=== PATIENT | female | born 1965 | race Two or more races ===

== ENCOUNTER 2016-10-08 17:33 | Emergency (ER) | payer MEDICAID ==
[~2016-10-08] VITALS: Ht 167.6 cm; Wt 79.8 kg
[~2016-10-08 17:33] MED LIST: BENAZEPRIL HCL20 MG ORAL; HUMULIN 70100 UNIT/2 SUBQ; HYDROCHLOROTHIA25 MG ORAL; IBUPROFEN600 MG ORAL; METFORMIN HCL500 M1 ORAL; NORCO 5-325 TA1 EACH ORAL
[2016-10-08] MEDS ORDERED: Morphine Sulfate 4mg/ml Inj IVP ONE (18:15)
[2016-10-08 19:17] LABS: BASOPHILS % (AUTO) 0.7 % (0.0-2.0); EOSINOPHILS % (AUTO) 1.8 % (0.0-3.0); LYMPHOCYTES % (AUTO) 37.1 % (20.0-45.0); MEAN CORPUSCULAR HEMOGLOBIN 31.5 PG (27.0-31.0); MEAN CORPUSCULAR HGB CONC 34.6 G/DL (32.0-36.0); MEAN CORPUSCULAR VOLUME 91 FL (80-99); MEAN PLATELET VOLUME 10.1 FL (6.5-10.1); MONOCYTES % (AUTO) 5.4 % (1.0-10.0); PLATELET COUNT 347 K/UL (150-450); RED BLOOD COUNT 4.28 M/UL (4.20-5.40); RED CELL DISTRIBUTION WIDTH 12.5 % (11.6-14.8); WHITE BLOOD COUNT 8.4 K/UL (4.8-10.8)
[2016-10-08 19:19] LABS: APPEARANCE,URINE SLIGHTLY CLOUDY; KETONES,URINE NEGATIVE (NEGATIVE); LEUKOCYTE ESTERASE ,URINE 1+ (NEGATIVE); NITRITE,URINE NEGATIVE (NEGATIVE); PH,URINE 7 (4.5-8.0); PROTEIN,URINE NEGATIVE (NEGATIVE); UROBILINOGEN,URINE NORMAL MG/DL (0.0-1.0)
[2016-10-08 19:34] LABS: ALANINE AMINOTRANSFERASE 17 U/L (3-33); ALBUMIN/GLOBULIN RATIO 1.4 (1.0-2.7); ANION GAP 14 (5-15); ASPARTATE AMINO TRANSFERASE 16 U/L (5-40); CALCIUM 9.8 mg/dL (8.6-10.2); CARBON DIOXIDE 27 mEQ/L (20-30); CHLORIDE 99 mEQ/L (98-107); CREATININE 1.2 mg/dL (0.5-0.9); GLOMERULAR FILTRATION RATE 47.3 mL/min (>60); HEMOLYSIS 1; LIPASE 48 U/L (< 60); POTASSIUM 3.3 mEQ/L (3.4-4.9); SODIUM 140 mEQ/L (135-145); TOTAL PROTEIN 7.1 g/dL (6.6-8.7)
[2016-10-08 19:36] LABS: RBC,URINE 0-2 /HPF (0 - 2); SQUAMOUS EPITHELIAL CELL,UR FEW /LPF (NONE/OCC); WBC,URINE 40-60 /HPF (0 - 2)
[2016-10-08 19:45] VITALS: BP 141/84
[2016-10-08] MEDS ORDERED: KEFLEX500 MG ORAL (21:28)
[2016-10-08] MEDS ORDERED: ACETAMINOPHEN-1 EAC1 ORAL (21:28)
[2016-10-08 21:48] VITALS: BP 140/76
--- NOTE | 2016-10-09 14:49 | Emergency Room Report ---
History of Present Illness General Chief Complaint: Abdominal Pain Source: Patient Present Illness HPI 50-year-old female presents to the complaining of abdominal pain. Patient notes pain for last 2 days. Patient states pain is "all over", 8/10, sharp,. Nonradiating. Denies fevers or chills. Notes increased urination. Denies flank pain. Denies nausea or vomiting. Denies diarrhea. No other aggravating or leading factors. Denies any other associated symptom Allergies: Coded Allergies: No Known Allergies (Unverified , 03/21/14) Patient History Past Medical History: DM, HTN Past Surgical History: none Pertinent Family History: none Social History: Denies: alcohol use, drug use, smoking Now: No Immunizations: UTD Reviewed Nursing Documentation: PMH: Agreed, PSxH: Agreed Nursing Documentation-PMH Hx Hypertension: Yes Hx Diabetes: Yes Hx Dialysis: No Hx Neurological Problems: No - CHOLECYSTECTOMY Review of Systems All Other Systems: negative except mentioned in HPI Physical Exam Vital Signs Date Time Temp Pulse Resp B/P Pulse Ox O2 Delivery O2 Flow Rate FiO2 10/08/16 17:52 97.9 95 18 112/77 99 Room Air Sp02 EP Interpretation: reviewed, normal General Appearance: no apparent distress, alert, GCS 15, non-toxic, obese Head: normocephalic Eyes: bilateral eye PERRL, bilateral eye normal inspection ENT: normal ENT inspection Neck: normal inspection Respiratory: chest non-tender, lungs clear, normal breath sounds, speaking full sentences Cardiovascular #1: regular rate, rhythm, no edema Gastrointestinal: tenderness Rectal: deferred Genitourinary: no CVA tenderness Musculoskeletal: normal inspection Neurologic: alert, oriented x3, responsive, motor strength/tone normal, sensory intact, speech normal Psychiatric: normal inspection Skin: normal inspection Lymphatic: normal inspection Medical Decision Making Diagnostic Impression: Primary Impression: UTI (urinary tract infection) Qualified Codes: N39.0 - Urinary tract infection, site not specified Additional Impression: Gastroenteritis ER Course Hospital Course 50-year-old F presents to ED with abdominal pain Differential diagnosis includes-appendicitis, cholecystitis, small bowel obstruction, gastritis, Clinical course Patient placed on stretcher. After initial history and physical I ordered labs , IV fluids, pain medications and CT scan Labs - no leukocytosis, electrolytes ok, LFTs normal, UA + bacteria CT scan shows enteritis, ? cystitis Upon reassessment, patient states pain has improved. I feel this is a highly complex case requiring extensive working including EKG/ Rhythm strip, Xray/CT/US, Blood/urine lab work, repeat exams while in ED, and administration of strong opiates/narcotics for pain control, admission to hospital or close patient follow up. Diagnosis - UTI, gastroenteritis Stable and discharged to home with Rx Keflex, Tylenol #3. Followup with PMD. Return to ED if symptoms recur or worsen Labs Test 10/08/16 19:00 White Blood Count 8.4 K/UL (4.8-10.8) Red Blood Count 4.28 M/UL (4.20-5.40) Hemoglobin 13.5 G/DL (12.0-16.0) Hematocrit 39.0 % (37.0-47.0) Mean Corpuscular Volume 91 FL (80-99) Mean Corpuscular Hemoglobin 31.5 PG (27.0-31.0) Mean Corpuscular Hemoglobin Concent 34.6 G/DL (32.0-36.0) Red Cell Distribution Width 12.5 % (11.6-14.8) Platelet Count 347 K/UL (150-450) Mean Platelet Volume 10.1 FL (6.5-10.1) Neutrophils (%) (Auto) 55.0 % (45.0-75.0) Lymphocytes (%) (Auto) 37.1 % (20.0-45.0) Monocytes (%) (Auto) 5.4 % (1.0-10.0) Eosinophils (%) (Auto) 1.8 % (0.0-3.0) Basophils (%) (Auto) 0.7 % (0.0-2.0) Urine Color Pale yellow Urine Appearance Slightly cloudy Urine pH 7 (4.5-8.0) Urine Specific [place] 1.005 (1.005-1.035) Urine Protein Negative (NEGATIVE) Urine Glucose (UA) 4+ (NEGATIVE) Urine Ketones Negative (NEGATIVE) Urine Occult Blood 2+ (NEGATIVE) Urine Nitrite Negative (NEGATIVE) Urine Bilirubin Negative (NEGATIVE) Urine Urobilinogen Normal MG/DL (0.0-1.0) Urine Leukocyte Esterase 1+ (NEGATIVE) Urine RBC 0-2 /HPF (0 - 2) Urine WBC 40-60 /HPF (0 - 2) Urine Squamous Epithelial Cells Few /LPF (NONE/OCC) Urine Bacteria None /HPF (NONE) Sodium Level 140 mEQ/L (135-145) Potassium Level 3.3 mEQ/L (3.4-4.9) Chloride Level 99 mEQ/L (98-107) Carbon Dioxide Level 27 mEQ/L (20-30) Anion Gap 14 (5-15) Blood Urea Nitrogen 15 mg/dL (7-23) Creatinine 1.2 mg/dL (0.5-0.9) Estimat Glomerular Filtration Rate 47.3 mL/min (>60) Glucose Level 278 mg/dL (74-106) Calcium Level 9.8 mg/dL (8.6-10.2) Total Bilirubin < 0.2 mg/dL (0.0-1.2) Aspartate Amino Transf (AST/SGOT) 16 U/L (5-40) Alanine Aminotransferase (ALT/SGPT) 17 U/L (3-33) Alkaline Phosphatase 118 U/L (35-104) Total Protein 7.1 g/dL (6.6-8.7) Albumin 4.2 g/dL (3.5-5.2) Globulin 2.9 g/dL Albumin/Globulin Ratio 1.4 (1.0-2.7) Lipase 48 U/L (< 60) CT/MRI/US Diagnostic Results CT/MRI/US Diagnostic Results : Imaging Test Ordered: CT A/P Impression enteritis. thickened bladder ? cystitis Last Vital Signs Date Time Temp Pulse Resp B/P Pulse Ox O2 Delivery O2 Flow Rate FiO2 10/08/16 21:48 88 16 140/76 98 Room Air 10/08/16 19:45 98.8 Status: improved Disposition: HOME, SELF-CARE Condition: Stable Scripts Cephalexin* (KEFLEX*) 500 Mg Capsule 500 MG ORAL Q6H, #28 CAP 0 Refills Prov: SUNDAY SAM M.D. 10/08/16 Acetaminophen With Codeine (T#3) (TYLENOL #3 TAB*) Y Tab 1 TAB ORAL Q8H Y for For Pain, #20 TAB Prov: SUNDAY SAM M.D. 10/08/16 Patient Instructions: Dysuria SUNDAY SAM M.D. Oct 09, 2016 14:49
--- NOTE | 2016-10-11 09:02 | Diagnostic Imaging Report ---
Indication: ABD PAIN Technique: CT scan of the abdomen and pelvis was performed from the diaphragms to the symphysis pubis with intravenous contrast material only per specific request of the ordering physician.. 5 mm sections were generated. Axial, coronal, and sagittal images are presented. Dose: Total Dose Length Product - DLP [address] Dose Index - CTDIvol(s) 19.07 mGy. Comparison: None Findings: The gallbladder is surgically absent. The liver is unremarkable. The spleen is normal. There is a gastric diverticulum from the fundus of the stomach. This measures approximately 3.4 cm. Adrenal glands are normal. The pancreas is unremarkable. Aorta and inferior vena cava are normal caliber. Retroperitoneum is free of adenopathy. The right kidney demonstrates a small cyst projecting from the upper pole. Left kidney is unremarkable. The appendix is normal. There is a slightly dilated loop of proximal jejunum with an air-fluid level. This does not appear obstructive. The bladder is collapsed. Uterus is normal. Left ovary is prominent. Impression: Slightly dilated loop of proximal jejunum, nonspecific, with air-fluid level. Small right renal cyst. Previous cholecystectomy. Gastric diverticulum. Otherwise negative. The above report is concordant with preliminary reading by [facility] with minor difference. The CT scanner at [facility] is accredited by the [employer] and the scans are performed using protocols designed to limit radiation exposure to as low as reasonably achievable to attain images of sufficient resolution adequate for diagnostic evaluation.
== END 2016-10-08 21:50 | disposition home or self-care (01) ==
LOC: EMR 19:20
DX: N39.0 Urinary tract infection, site not specified (principal); K52.9 Noninfective gastroenteritis and colitis, unspecified; E11.9 Type 2 diabetes mellitus without complications; I10 Essential (primary) hypertension; Z90.49 Acquired absence of other specified parts of digestive tract; E66.9 Obesity, unspecified; N28.1 Cyst of kidney, acquired
CPT/HCPCS: 36415; 74177; 80053; 81003; 82962; 83690; 85025; 87086; 87181; 96374; 96375; 99284; J2270; J2405; Q9967

== ENCOUNTER 2016-10-18 13:13 | Emergency (ER) | payer MEDICAID ==
[~2016-10-18] VITALS: Ht 170.2 cm; Wt 79.4 kg
[2016-10-18 13:13] VITALS: BP 106/71
[~2016-10-18 13:13] MED LIST changes: +ACETAMINOPHEN-1 EAC1 ORAL; +KEFLEX500 MG ORAL
[2016-10-18 14:18] LABS: APPEARANCE,URINE SLIGHTLY CLOUDY; BASOPHILS % (AUTO) 1.2 % (0.0-2.0); EOSINOPHILS % (AUTO) 1.9 % (0.0-3.0); KETONES,URINE 1+ (NEGATIVE); LEUKOCYTE ESTERASE ,URINE 1+ (NEGATIVE); LYMPHOCYTES % (AUTO) 30.5 % (20.0-45.0); MEAN CORPUSCULAR HGB CONC 32.4 G/DL (32.0-36.0); MEAN CORPUSCULAR VOLUME 93 FL (80-99); MEAN PLATELET VOLUME 9.6 FL (6.5-10.1); MONOCYTES % (AUTO) 8.8 % (1.0-10.0); NEUTROPHILS % (AUTO) 57.6 % (45.0-75.0); NITRITE,URINE NEGATIVE (NEGATIVE); PH,URINE 6.5 (4.5-8.0); PLATELET COUNT 373 K/UL (150-450); PROTEIN,URINE NEGATIVE (NEGATIVE); RED BLOOD COUNT 4.56 M/UL (4.20-5.40); RED CELL DISTRIBUTION WIDTH 12.5 % (11.6-14.8); UROBILINOGEN,URINE NORMAL MG/DL (0.0-1.0); WHITE BLOOD COUNT 10.7 K/UL (4.8-10.8)
[2016-10-18 14:27] LABS: BACTERIA,URINE OCCASIONAL /HPF; SQUAMOUS EPITHELIAL CELL,UR FEW /LPF (NONE/OCC); WBC,URINE 0-2 /HPF (0 - 2)
[2016-10-18] MEDS ORDERED: Morphine Sulfate 4mg/ml Inj IVP ONE (14:30)
[2016-10-18 14:31] LABS: ALBUMIN/GLOBULIN RATIO 1.6 (1.0-2.7); CALCIUM 9.6 mg/dL (8.6-10.2); CREATININE 1.3 mg/dL (0.5-0.9); GLOMERULAR FILTRATION RATE 43.2 mL/min (>60); POTASSIUM 3.3 mEQ/L (3.4-4.9); TOTAL PROTEIN 7.2 g/dL (6.6-8.7)
[2016-10-18] MEDS ORDERED: HUMULIN 70100 UNIT/3 SQ ×2 (14:50)
[2016-10-18] MEDS ORDERED: GLIPIZIDE5 MG ORAL (14:54)
[2016-10-18] MEDS ORDERED: sleeping pill (14:54)
[2016-10-18] MEDS ORDERED: cholesterol pill (14:54)
[2016-10-18] MEDS ORDERED: ASPIR 8181 MG ORAL (14:54)
[2016-10-18] MEDS ORDERED: [UNRECOGNIZED DRUG - REMARK] (14:54)
[2016-10-18] MEDS ORDERED: ZOFRAN4 M3 ORAL (15:28)
[2016-10-18] MEDS ORDERED: ACETAMINOPHEN-1 EAC1 ORAL (15:28)
[2016-10-18 15:41] VITALS: BP 106/71
--- NOTE | 2016-10-18 17:21 | Emergency Room Report ---
History of Present Illness General Chief Complaint: Abdominal Pain Source: Patient Present Illness HPI The patient is a 50-year-old female presenting for abdominal pain. She was seen in this emergency Department 10 days prior for UTI which she had lab work done as well as CT scan which only found UTI. She is given antibiotics and states that her dysuria decreased. Abdominal pain initially decreased but has now returned. Pain is a 10 out of 10 dull ache "all over" the abdomen. She also admits to diarrhea which began last night she denies nausea or vomiting. She denies other symptoms including fever, chills, rash Allergies: Coded Allergies: No Known Allergies (Unverified , 03/21/14) Patient History Past Medical History: see triage record Pertinent Family History: none Reviewed Nursing Documentation: PMH: Agreed, PSxH: Agreed Nursing Documentation-PMH Hx Hypertension: Yes Hx Diabetes: Yes Hx Dialysis: No Hx Neurological Problems: No - CHOLECYSTECTOMY Review of Systems All Other Systems: negative except mentioned in HPI Physical Exam Vital Signs Date Time Temp Pulse Resp B/P Pulse Ox O2 Delivery O2 Flow Rate FiO2 10/18/16 13:12 97.0 96 16 106/71 99 Room Air Sp02 EP Interpretation: reviewed, normal General Appearance: no apparent distress, alert, GCS 15, non-toxic Head: normocephalic, atraumatic Eyes: bilateral eye PERRL, bilateral eye normal inspection ENT: hearing grossly normal, normal pharynx, no angioedema, normal voice Gastrointestinal: tenderness - epigastric Musculoskeletal: back normal, gait/station normal, normal range of motion, non- tender Neurologic: alert, oriented x3, responsive, motor strength/tone normal, sensory intact, speech normal Psychiatric: judgement/insight normal, memory normal, mood/affect normal, no suicidal/homicidal ideation Skin: normal color, no rash, warm/dry, well hydrated Medical Decision Making PA Attestation Dr. Hargrove is my supervising physician. Patient management was discussed with my supervising physician Diagnostic Impression: Primary Impression: Gastroenteritis Additional Impression: Hyperglycemia ER Course The patient is a 50-year-old female presenting for abdominal pain and diarrhea Differential diagnoses considered include but not limited to gastritis, pancreatitis, appendicitis, UTI, C dif, diverticulitis, among others PE: Afebrile. NAD Abdomen is soft. Normal bowel sounds. Nondistended. There is tenderness to palpation over epigastric region. No lower abdominal tenderness. Skin is warm and dry Blood work and urinalysis unremarkable except for significant hyperglycemia. Recent CT of abd done and was unremarkable. The patient is given insulin subcutaneous with a significant decrease in glucose. IV fluids and morphine have decreased pain. She is given prescription for pain medication and zofran. She was informed this is likely gastroenteritis due to vital infection. She will follow up with her primary doctor soon as possible. ER precautions given Laboratory Tests Test 10/18/16 13:57 White Blood Count 10.7 K/UL (4.8-10.8) Red Blood Count 4.56 M/UL (4.20-5.40) Hemoglobin 13.7 G/DL (12.0-16.0) Hematocrit 42.3 % (37.0-47.0) Mean Corpuscular Volume 93 FL (80-99) Mean Corpuscular Hemoglobin 30.0 PG (27.0-31.0) Mean Corpuscular Hemoglobin Concent 32.4 G/DL (32.0-36.0) Red Cell Distribution Width 12.5 % (11.6-14.8) Platelet Count 373 K/UL (150-450) Mean Platelet Volume 9.6 FL (6.5-10.1) Neutrophils (%) (Auto) 57.6 % (45.0-75.0) Lymphocytes (%) (Auto) 30.5 % (20.0-45.0) Monocytes (%) (Auto) 8.8 % (1.0-10.0) Eosinophils (%) (Auto) 1.9 % (0.0-3.0) Basophils (%) (Auto) 1.2 % (0.0-2.0) Urine Color Pale yellow Urine Appearance Slightly cloudy Urine pH 6.5 (4.5-8.0) Urine Specific [place] 1.010 (1.005-1.035) Urine Protein Negative (NEGATIVE) Urine Glucose (UA) 4+ (NEGATIVE) H Urine Ketones 1+ (NEGATIVE) H Urine Occult Blood 2+ (NEGATIVE) H Urine Nitrite Negative (NEGATIVE) Urine Bilirubin Negative (NEGATIVE) Urine Urobilinogen Normal MG/DL (0.0-1.0) Urine Leukocyte Esterase 1+ (NEGATIVE) H Urine RBC 2-4 /HPF (0 - 2) H Urine WBC 0-2 /HPF (0 - 2) Urine Squamous Epithelial Cells Few /LPF (NONE/OCC) Urine Bacteria Occasional /HPF (NONE) Sodium Level 137 mEQ/L (135-145) Potassium Level 3.3 mEQ/L (3.4-4.9) L Chloride Level 96 mEQ/L (98-107) L Carbon Dioxide Level 24 mEQ/L (20-30) Anion Gap 17 (5-15) H Blood Urea Nitrogen 20 mg/dL (7-23) Creatinine 1.3 mg/dL (0.5-0.9) H Estimate Glomerular Filtration Rate 43.2 mL/min (>60) Glucose Level 467 mg/dL (74-106) H Calcium Level 9.6 mg/dL (8.6-10.2) Total Bilirubin 0.2 mg/dL (0.0-1.2) Aspartate Amino Transferase (AST) 17 U/L (5-40) Alanine Aminotransferase (ALT) 21 U/L (3-33) Alkaline Phosphatase 117 U/L (35-104) H Total Protein 7.2 g/dL (6.6-8.7) Albumin 4.5 g/dL (3.5-5.2) Globulin 2.7 g/dL Albumin/Globulin Ratio 1.6 (1.0-2.7) Lipase 56 U/L (< 60) Lab Results Impression No leukocytosis. They're significant hyperglycemia Urinalysis shows improvement from previous. not consistent with infection Last Vital Signs Date Time Temp Pulse Resp B/P Pulse Ox O2 Delivery O2 Flow Rate FiO2 10/18/16 15:41 97.0 96 16 106/71 99 Room Air Status: improved Disposition: HOME, SELF-CARE Condition: Improved Scripts Acetaminophen With Codeine (T#3) (TYLENOL #3 TAB*) Y Tab 1 TAB ORAL Q6HR Y for For Pain, #10 TAB Prov: TERZIAN,RENAE P.A. 10/18/16 Ondansetron* (ZOFRAN*) 4 Mg Tablet 4 MG ORAL Q6H Y for Nausea & Vomiting, #30 TAB Prov: TERZIAN,RENAE P.A. 10/18/16 Patient Instructions: Abdominal Pain, Adult, Adenovirus Additional Instructions: I discussed my findings with the patient. All questions and concerns have been answered. Treatment and medication compliance have been addressed. I advised the patient that they need to follow up with PMD in 3-5 days. Return to ED if symptoms worsen, new symptoms arise such as fever, blood in stools, or if needed for any reason. Patient verbalized understanding of discharge instructions. RENAE CARRILLO Oct 18, 2016 17:21
== END 2016-10-18 15:41 | disposition home or self-care (01) ==
LOC: EDBD 13:13 → EMR 13:40
DX: K52.9 Noninfective gastroenteritis and colitis, unspecified (principal); E11.65 Type 2 diabetes mellitus with hyperglycemia; I10 Essential (primary) hypertension; Z90.49 Acquired absence of other specified parts of digestive tract
CPT/HCPCS: 36415; 80053; 81003; 82962; 83690; 85025; 96360; 96372; 96374; 99284; J1815; J2270; J2405

== ENCOUNTER 2018-04-04 10:35 | Inpatient (IN) | payer MEDICAID ==
[~2018-04-04] VITALS: Ht 152.4 cm; Wt 77.1 kg
[~2018-04-04 10:35] MED LIST changes: +ASPIR 8181 MG ORAL; +GLIPIZIDE5 MG ORAL; +HUMULIN 70100 UNIT/3 SQ; +ZOFRAN4 M3 ORAL; +[UNRECOGNIZED DRUG - REMARK]; +cholesterol pill; +sleeping pill
[2018-04-04 10:51] VITALS: BP 110/71
--- NOTE | 2018-04-04 11:53 | Diagnostic Imaging Report ---
Indication: Headache Technique: Contiguous 5 mm thick transaxial imaging of the head obtained in a Siemens Sensation [address] scanner. Soft tissue and bone windows generated. Automatic Exposure Control was utilized. Total Dose length Product (DLP): 1305.[address] Dose Index Volume (CTDIvol): 70.38 mGy Comparison: none Findings: Late subacute to chronic lacunar infarct measuring 1 cm in the left basal ganglia regions demonstrated the. This is seen as a well-circumscribed a 1 cm ovoid hypodensity. Correlate clinically. Basal cisterns and ventricles appear normal. There is no evidence of edema or mass effect. There is no acute hemorrhage identified within the brain. Osseous structures appear normal. IMPRESSION: No acute CVA, mass effect or edema identified on this examination. Late subacute to chronic lacunar infarct involving left basal ganglia region. The CT scanner at [facility] is accredited by the [employer] and the scans are performed using dose optimization techniques as appropriate to a performed exam including Automatic Exposure control.
[2018-04-04 11:58] LABS: BASOPHILS % (AUTO) 1.1 % (0.0-2.0); EOSINOPHILS % (AUTO) 0.9 % (0.0-3.0); HEMATOCRIT 41.6 % (37.0-47.0); HEMOGLOBIN 13.7 G/DL (12.0-16.0); LYMPHOCYTES % (AUTO) 40.5 % (20.0-45.0); MEAN CORPUSCULAR VOLUME 91 FL (80-99); MONOCYTES % (AUTO) 8.5 % (1.0-10.0); NEUTROPHILS % (AUTO) 49.1 % (45.0-75.0); PLATELET COUNT 500 K/UL (150-450); RED BLOOD COUNT 4.58 M/UL (4.20-5.40); RED CELL DISTRIBUTION WIDTH 13.2 % (11.6-14.8); WHITE BLOOD COUNT 10.1 K/UL (4.8-10.8)
[2018-04-04 12:13] LABS: ANION GAP 11 mmol/L (5-15); BLOOD UREA NITROGEN 22 mg/dL (7-18); CALCIUM 8.9 MG/DL (8.5-10.1); CARBON DIOXIDE 26 MMOL/L (21-32); CHLORIDE 101 MMOL/L (98-107); CREATININE 1.2 MG/DL (0.55-1.30); POTASSIUM 2.9 MMOL/L (3.5-5.1); SODIUM 138 MMOL/L (136-145)
[2018-04-04 12:20] LABS: ALANINE AMINOTRANSFERASE 33 U/L (12-78); ALBUMIN 3.7 G/DL (3.4-5.0); ALKALINE PHOSPHATASE 85 U/L (46-116); ASPARTATE AMINO TRANSFERASE 23 U/L (15-37); BILIRUBIN,TOTAL 0.3 MG/DL (0.2-1.0); CHOLESTEROL 161 MG/DL (< 200); HDL CHOLESTEROL 29 MG/DL (40-60); TRIGLYCERIDES 497 MG/DL (30-150)
[2018-04-04 13:05] VITALS: BP 116/62
--- NOTE | 2018-04-04 15:33 | Emergency Room Report ---
History of Present Illness General Chief Complaint: General Complaint Source: Patient Present Illness HPI 52-year-old female presents ED for evaluation. States that this morning she felt an episode of dizziness and unsteady gait. States she felt her right arm go numb. States symptoms last for about one hour and then resolved. Patient denies any symptoms at this time. States she feels weak. States that about one month ago she had a similar episode but did not go to the hospital at that time. Denies chest pain or shortness of breath. Notes history of hypertension and diabetes. Alcohol or drug use. No other aggravating relieving factors. Denies any other associated symptoms Allergies: Coded Allergies: No Known Allergies (Unverified , 03/21/14) Patient History Past Medical History: DM, HTN Past Surgical History: none Pertinent Family History: none Social History: Denies: smoking, alcohol use, drug use Now: No Immunizations: UTD Reviewed Nursing Documentation: PMH: Agreed; PSxH: Agreed Nursing Documentation-PMH Past Medical History: No History, Except For Hx Hypertension: Yes Hx Diabetes: Yes Hx Dialysis: No Hx Neurological Problems: No - CHOLECYSTECTOMY Review of Systems All Other Systems: negative except mentioned in HPI Physical Exam Vital Signs Date Time Temp Pulse Resp B/P (MAP) Pulse Ox O2 Delivery O2 Flow Rate FiO2 04/04/18 10:41 97.9 71 18 103/73 98 Room Air Sp02 EP Interpretation: reviewed, normal General Appearance: no apparent distress, GCS 15, non-toxic, lethargic Head: normocephalic, atraumatic Eyes: bilateral eye normal inspection, bilateral eye PERRL ENT: hearing grossly normal, normal pharynx, no angioedema, normal voice Neck: full range of motion, supple/symm/no masses Respiratory: chest non-tender, lungs clear, normal breath sounds, speaking full sentences Cardiovascular #1: regular rate, rhythm, no edema Cardiovascular #2: 2+ carotid (R), 2+ carotid (L), 2+ radial (R), 2+ radial (L) , 2+ dorsalis pedis (R), 2+ dorsalis pedis (L) Gastrointestinal: normal bowel sounds, non tender, soft, non-distended, no guarding, no rebound Rectal: deferred Genitourinary: normal inspection, no CVA tenderness Musculoskeletal: back normal, gait/station normal, normal range of motion, non- tender Neurologic: alert, oriented x3, responsive, preschool program director III-XII nml as tested, motor strength/tone normal, sensory intact, cerebellar normal, speech normal Psychiatric: judgement/insight normal, memory normal, mood/affect normal, no suicidal/homicidal ideation Reflexes: 3+ bicep (R), 3+ bicep (L), 3+ tricep (R), 3+ tricep (L), 3+ knee (R) , 3+ knee (L) Skin: normal color, no rash, warm/dry, well hydrated Lymphatic: no adenopathy Medical Decision Making Diagnostic Impression: Primary Impression: Hypoglycemia Additional Impression: CVA (cerebral vascular accident) Qualified Codes: I63.9 - Cerebral infarction, unspecified ER Course Hospital Course 52-year-old F presents ED complaining of episode of unsteady gait and right arm numbness this morning Differential diagnoses include: NV/unstable angina, SVT/Vtach/AFib, CVA/TIA Clinical course Patient placed on stretcher. 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 After initial history and physical I ordered labs, EKG, chest x-ray, and CT head accucheck 43 - given D50 labs reviewed- glucose 41, no leukocytosis, Hb/Hct stable EKG - NSR, no acute ischemic changes interpreted by me CT brain - subacute infarct noted in the basal ganglia Accu-Chek improved after D50. Discussed findings with patient. The episode patient experienced last month with the dizziness was probably a lacunar infarct that she sustained. Today patient may have had a TIA. No residual neurological sequela at this time It's also possible that her symptoms were related to her hypoglycemia. Patient is on glipizide which is long-acting. Patient given aspirin here. Patient is not a candidate for TPA as she has no existing neurological symptoms and she is out of the window for the previous CVA Patient will be admitted to Dr. Roverto Mcfadden. I feel this is a highly complex case requiring extensive working including EKG/Rhythm strip, Xray/CT/US, Blood/urine lab work, repeat exams while in ED, and administration of strong opiates/narcotics for pain control, admission to hospital or close patient follow up. Diagnosis - CVA/TIA, hypoglycemia admitted to telemetry in serious condition Labs Test 04/04/18 11:35 White Blood Count 10.1 K/UL (4.8-10.8) Red Blood Count 4.58 M/UL (4.20-5.40) Hemoglobin 13.7 G/DL (12.0-16.0) Hematocrit 41.6 % (37.0-47.0) Mean Corpuscular Volume 91 FL (80-99) Mean Corpuscular Hemoglobin 29.9 PG (27.0-31.0) Mean Corpuscular Hemoglobin Concent 32.9 G/DL (32.0-36.0) Red Cell Distribution Width 13.2 % (11.6-14.8) Platelet Count 500 K/UL (150-450) Mean Platelet Volume 7.5 FL (6.5-10.1) Neutrophils (%) (Auto) 49.1 % (45.0-75.0) Lymphocytes (%) (Auto) 40.5 % (20.0-45.0) Monocytes (%) (Auto) 8.5 % (1.0-10.0) Eosinophils (%) (Auto) 0.9 % (0.0-3.0) Basophils (%) (Auto) 1.1 % (0.0-2.0) Prothrombin Time 10.1 SEC (9.30-11.50) Prothromb Time International Ratio 1.0 (0.9-1.1) Activated Partial Thromboplast Time 27 SEC (23-33) Sodium Level 138 MMOL/L (136-145) Potassium Level 2.9 MMOL/L (3.5-5.1) Chloride Level 101 MMOL/L (98-107) Carbon Dioxide Level 26 MMOL/L (21-32) Anion Gap 11 mmol/L (5-15) Blood Urea Nitrogen 22 mg/dL (7-18) Creatinine 1.2 MG/DL (0.55-1.30) Estimat Glomerular Filtration Rate 47.0 mL/min (>60) Glucose Level 41 MG/DL (74-106) Calcium Level 8.9 MG/DL (8.5-10.1) Total Bilirubin 0.3 MG/DL (0.2-1.0) Aspartate Amino Transf (AST/SGOT) 23 U/L (15-37) Alanine Aminotransferase (ALT/SGPT) 33 U/L (12-78) Alkaline Phosphatase 85 U/L (46-116) Troponin I 0.005 ng/mL (0.000-0.056) Total Protein 7.4 G/DL (6.4-8.2) Albumin 3.7 G/DL (3.4-5.0) Globulin 3.7 g/dL Albumin/Globulin Ratio 1.0 (1.0-2.7) Triglycerides Level 497 MG/DL (30-150) Cholesterol Level 161 MG/DL (< 200) LDL Cholesterol 79 mg/dL (<100) HDL Cholesterol 29 MG/DL (40-60) Cholesterol/HDL Ratio 5.6 (3.3-4.4) EKG Diagnostic Results Rate: normal Rhythm: NSR ST Segments: no acute changes ASA given to the pt in ED: No Rhythm Strip Diag. Results EP Interpretation: yes Rhythm: NSR, no PVC's, no ectopy CT/MRI/US Diagnostic Results CT/MRI/US Diagnostic Results : Imaging Test Ordered: CT Head Impression No acute CVA, mass effect or edema identified on this examination. Late subacute to chronic lacunar infarct involving left basal ganglia region. Last Vital Signs Date Time Temp Pulse Resp B/P (MAP) Pulse Ox O2 Delivery O2 Flow Rate FiO2 04/04/18 14:05 98.0 82 18 115/83 98 Room Air Status: improved Disposition: ADMITTED INPATIENT Condition: Serious Referrals: NON PHYSICIAN (PCP) Farhan Brantley MD Apr 04, 2018 15:33
[2018-04-04 16:00] VITALS: BP 130/88
[2018-04-04] MEDS ORDERED: Gadavist 7.5mMol/7.5ml vial IV PRN (16:30)
[2018-04-04] MEDS ORDERED: NovoLOG Insulin Flexpen SUBQ SCH (16:50)
[2018-04-04] MEDS: Aspirin Baby 81mg ORAL SCH (17:42)
[2018-04-04] MEDS: NS w/KCl 20mEq 1,000 ML IV SCH (17:43)
--- NOTE | 2018-04-04 19:37 | Consultation ---
Consult Note Consult Note NEUROLOGY CONSULTATION: Full note dictated #[id number] 52 y/o, RH, BF with PH of HTN, DM. About 1 month ago had an episode of right sided tingling and unsteadiness on her feet for ~ 30 minutes. Last night went to sleep with a bad headache. This morning woke up with right sided tingling and severe unsteadiness on her feet with inability to walk and came to the [facility] ER. ON EXAM: Mild problems with memory. Mild dysarthria. Right hemiparesis - face/UE/LE Brisker DTRs on right Mildly right paretic gait. IMPRESSION: Right paresis due to left brain CV event ~ 1 month ago and then a new CV event today. Left BG stroke. Etiology of stroke HTN, DM, Smoking and Crack use. REC: 1. BP control - goal <120/80 2. BS control - goal Hb A1c - 6% 3. Stop Cocaine/THC/Alcohol and tobacco use. 4. PT/OT 5. ASA 81 mg q d Shahab Pollock M.D., M.S.P.H. Shahab Pollock MD Apr 04, 2018 19:37
[2018-04-04 20:00] VITALS: BP 103/76
[2018-04-04] MEDS: Insulin NovoLOG Flexpen S/S (insulin sensitive) SUBQ SCH (21:11)
--- NOTE | 2018-04-04 22:00 | Consultation ---
DATE OF CONSULTATION: 04/04/2018 NEUROLOGY CONSULTATION CONSULTING PHYSICIAN: Shahab Pollock M.D. REQUESTING PHYSICIAN: Twan Layne M.D. HISTORY: Ms. Shabana Perkins is a 52-year-old, right-handed, black lady, with a past history of hypertension and diabetes mellitus. Approximately one month ago, she had an episode of right sided tingling and unsteadiness on her feet that lasted for approximately 30 minutes. The problem then completely resolved. Last night, she went to sleep with a bad headache. On awakening this morning, she noticed the right sided tingling again, the tingling involved her upper extremity, face, and tongue. She also was severely unsteady on her feet to a point that she was unable to walk. As a result of that she came to the [facility] Emergency Room and has since been admitted. At this point in time, she feels that she is back to her normal self. She, at this point, denies any weakness on one side or the other, numbness on one side or the other, problems with speech, problems with language, problems with vision, or problems with her memory. PAST MEDICAL HISTORY: Significant for hypertension and diabetes mellitus for the last 10 years. FAMILY HISTORY: Hypertension and disbetes in other family members. PERSONAL HISTORY: Home: She lives at home with her children. 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 Habits: She smokes "socially" 1 to 2 cigarettes every day. She consumes approximately 5 to 6 alcoholic drinks in a week. She consumes crack cocaine and marijuana from time to time. She tells me that the last use was approximately 1 week ago. MEDICATIONS: Present medications include benazepril, insulin and aspirin. PHYSICAL EXAMINATION: GENERAL: She is a well-developed and well-nourished slightly obese black lady, lying in bed, in no acute distress. VITAL SIGNS: Pulse 90/minute, blood pressure 130/88 mmHg, respirations 20/minute, temperature 98.1 degrees Fahrenheit. HEAD: Normocephalic and atraumatic. EENT: Examination is benign. NECK: No neck rigidity was observed. NEUROLOGICAL EXAMINATION: MENTAL STATUS EXAMINATION: She was awake and alert. She was oriented to person, place, and time. She was able to recall 3/3 words immediately, but could only remember 2/3 words in 1 minute and 3 minutes on the first trial. On the second trial, she was able to remember all 3 words in 1 minute and 3 minutes. She was able to remember presidents, Trump and Obama, but could not remember presidents prior to that. Her mathematical skills were fairly good. Her visuospatial function was preserved. SPEECH: She had a mild dysarthria of a labial nature. LANGUAGE: She had a mild anomia for low-frequency words. CRANIAL NERVE EXAMINATION: II: The visual garibay were intact to confrontation testing. III, IV & : The external ocular movements were full and the pupils 3 mm in diameter, equal, round, regular, and reactive to light. V: She had normal facial sensations, and the temporales, masseters, and pterygoids functioned normally. VII: She had a right seventh central facial paresis. VIII: She was able to hear well bilaterally and had no nystagmus. IX: The palate moved symmetrically on phonation. X: She had no hoarseness of voice. XI: The sternocleidomastoids and trapezii functioned normally. XII: The tongue was in the midline without any fasciculations or atrophy. MOTOR SYSTEM: The tone was normal in all four extremities. Examination of muscle mass revealed no focal wasting. Examination of power revealed G 5/5 power except for G 4+/5 power in the right finger extensors and iliopsoas. SENSORY EXAMINATION: She had intact sensations to pinprick, light touch, and graphesthesia. COORDINATION: She performed well on kujkzm-bq-zsuz and hvkh-tw-usha testing. On Romberg test, she swayed, but did not fall to one side or the other. REFLEXES: 2++ on right and 2+ on the left at the biceps, triceps, and brachioradialis and knees. 1++ on the right and 1+ on the left at the ankles. The plantar responses were flexor bilaterally. STANCE: She stood up with contact guard. GAIT: She walked well with contact guard with mildly right paretic gait. DIAGNOSTIC IMPRESSION: 1. Ms. Shabana Perkins is a 52-year-old, right-handed, black lady, with a past history of hypertension and diabetes mellitus, who approximately a month ago had an episode of right-sided tingling and unsteadiness on her feet that lasted for approximately 30 minutes and then resolved. Last night, she went to sleep with a bad headache and on awakening this morning, she noticed right-sided tingling, which was much more severe than last time and in addition, significant unsteadiness on her feet to a point where she was unable to walk. As a result of that she came to the hospital and has improved significantly since then. 2. On neurological examination, at this time, she does have mild problems with memory, a mild dysarthria, a right hemiparesis involving the face, upper and lower extremities, brisker reflexes on the right side compared to the left, and a mildly right paretic gait. 3. An CT scan of the brain performed on 04/04/2018 reveals an area of decreased density in the left basal ganglia, consistent with a subacute infarct in that region. 4. Laboratory data obtained thus far have revealed that her potassium was low at 2.9, her BUN was elevated at 22 with a creatinine of 1.2, and her glucose was low at 41. Her lipid panel revealed a total cholesterol of 161 with an LDL of 79 and an HDL of 29. 5. The patient's history, neurological examination, laboratory data and imaging studies are most compatible with a new right hemiparesis and dysarthria due to a left brain stroke involving the left basal ganglia. The patient most probably had an event approximately one month ago and then a new event today. 6. The etiology for the patient's cerebrovascular disease is hypertension, diabetes mellitus, smoking, and using crack cocaine. RECOMMENDATIONS: 1. The patient was given an explanation of the above mentioned findings. 2. Agree with starting the patient on aspirin 81 mg daily for small-blood vessel stroke prophylaxis. 3. The patient was told to stop using cocaine, cannabinols, alcohol, and tobacco immediately. 4. Her blood pressure goal should be equal to or less than 120/80 mmHg. 5. The patient's blood sugar goal should be a hemoglobin A1c of close to 6%, in addition an attempt should be made to prevent any hypoglycemic events. 6. The patient will be started on a course of physical and occupational therapy to rehabilitate her. Thank you for entrusting me with the care of Ms. Perkins. I shall follow her with you. Shahab Pollock M.D., M.S.P.H. DR: RUDDY JOB#: [id number] MTDD
--- NOTE | 2018-04-04 23:00 | History and Physical Report ---
DATE OF ADMISSION: 04/04/2018 REASON FOR ADMISSION: Subacute cerebrovascular accident. HISTORY OF PRESENT ILLNESS: This 52-year-old female with several risk factors for accelerated atherosclerosis, presented to the emergency room one night after going to sleep with a very bad headache and wakening up this morning with right-sided tingling of her right face, arm, and tongue. She also was notably unsteady on her feet and unable to walk. She came to the emergency room where following arrival she did improve with regard to her symptoms, although they did not resolve completely. She noted some numbness, some speech difficulty, and some problems with language and vision. She had a CAT scan of the brain that was grossly abnormal and hospitalization was initiated. PAST MEDICAL HISTORY: Hypertension, type 2 diabetes mellitus, and hyperlipidemia. ALLERGIES: None known. FAMILY HISTORY: Noncontributory. MEDICATIONS: Prior to admission, reviewed and reconciled. SOCIAL HISTORY: She smokes cigarettes socially may be a few daily and consumes five to six alcoholic drinks a week. She consumes crack cocaine and marijuana from time to time as well, most recently one week ago. REVIEW OF SYSTEMS: No loss of hearing. She has had some problems with vision. No prior history of seizure or stroke. Blood pressure control has been what she describes as good. Medication compliance has been good. She denies any melena or bright red blood per rectum. There is no history of asthma or bronchitis. There is no known history of kidney disease. She has not been on cholesterol medicines for over 10 years. She does take her aspirin regularly. PHYSICAL EXAMINATION: GENERAL: Well developed, well nourished, slightly obese female, in no distress. VITAL SIGNS: Blood pressure 130/86, pulse 90, respirations 20, and afebrile. HEENT: Normocephalic, atraumatic. Conjunctivae pink. Sclerae are anicteric. Oropharynx clear. Mucous membranes moist. NECK: Supple. Jugular venous pressure normal. No bruits. LUNGS: Clear. CARDIAC: Regular rhythm and rate. Normal S1, S2 with a fourth heart sound. ABDOMEN: Soft, nontender. Moderately obese. No bruits. EXTREMITIES: Good pulses. No edema. NEUROLOGIC: Reveals mild dysarthria, mild anomia. Unsteady gait. Pupils equal, round, and reactive to light and accommodation. Extraocular movements intact. There is no facial asymmetry, and strength is symmetric, although possible slightly decreased on the right upper extremity. LABORATORY AND DIAGNOSTIC DATA: EKG with sinus rhythm and nonspecific ST change. Labs are reviewed. Chemistry panel notable for potassium 2.9, BUN 22, creatinine 1.2. Triglycerides 497. LDL 79. CT scan of the brain revealed subacute left basal ganglia infarct. IMPRESSIONS: 1. Left basal ganglia subacute cerebrovascular accident. 2. Hypokalemia. 3. Hypertriglyceridemia. 4. Hypertensive heart disease with chronic kidney disease. 5. Type 2 diabetes mellitus. 6. History of crack cocaine abuse. PLAN: 1. Continue aspirin. 2. Avoid any cocaine and cannabis use as well as alcohol and tobacco at this time. 3. Optimize blood pressure control. 4. Check a hemoglobin A1c. 5. Optimize blood glucose control. 6. Anti lipid therapy. 7. Physical and occupational therapy. 8. Check MRI of brain. Twan Layne M.D. DR: STARR JOB#: [id number] CC: BLANCA
[2018-04-05] VITALS: BP 115/73
[2018-04-05 01:05] LABS: BILIRUBIN, URINE NEGATIVE (NEGATIVE); COLOR,URINE PALE YELLOW; GLUCOSE, URINE (UA) NEGATIVE (NEGATIVE); KETONES,URINE NEGATIVE (NEGATIVE); LEUKOCYTE ESTERASE ,URINE 1+ (NEGATIVE); NITRITE,URINE NEGATIVE (NEGATIVE); PH,URINE 6.5 (4.5-8.0); PROTEIN,URINE NEGATIVE (NEGATIVE); UROBILINOGEN,URINE NORMAL MG/DL (0.0-1.0)
[2018-04-05 01:16] LABS: APPEARANCE,URINE SLIGHTLY CLOUDY
[2018-04-05] MEDS: NS w/KCl 20mEq 1,000 ML IV SCH ×2 (03:44→13:50)
[2018-04-05 04:00] VITALS: BP 119/83
[2018-04-05] MEDS: Insulin NovoLOG Flexpen S/S (insulin sensitive) SUBQ SCH ×3 (06:08→17:35)
[2018-04-05 07:10] LABS: BASOPHILS % (AUTO) 0.8 % (0.0-2.0); EOSINOPHILS % (AUTO) 1.6 % (0.0-3.0); HEMATOCRIT 37.6 % (37.0-47.0); LYMPHOCYTES % (AUTO) 51.3 % (20.0-45.0); MEAN CORPUSCULAR VOLUME 92 FL (80-99); NEUTROPHILS % (AUTO) 34.4 % (45.0-75.0); PLATELET COUNT 425 K/UL (150-450); RED BLOOD COUNT 4.08 M/UL (4.20-5.40); RED CELL DISTRIBUTION WIDTH 13.4 % (11.6-14.8); WHITE BLOOD COUNT 6.2 K/UL (4.8-10.8)
[2018-04-05 08:00] VITALS: BP 119/83
[2018-04-05 08:03] LABS: ALANINE AMINOTRANSFERASE 30 U/L (12-78); ALBUMIN/GLOBULIN RATIO 0.9 (1.0-2.7); ALKALINE PHOSPHATASE 102 U/L (46-116); ANION GAP 10 mmol/L (5-15); ASPARTATE AMINO TRANSFERASE 19 U/L (15-37); BILIRUBIN,TOTAL 0.2 MG/DL (0.2-1.0); BLOOD UREA NITROGEN 17 mg/dL (7-18); CALCIUM 8.4 MG/DL (8.5-10.1); CARBON DIOXIDE 25 MMOL/L (21-32); CHLORIDE 107 MMOL/L (98-107); CHOLESTEROL 138 MG/DL (< 200); CREATININE 1.2 MG/DL (0.55-1.30); HDL CHOLESTEROL 30 MG/DL (40-60); POTASSIUM 3.8 MMOL/L (3.5-5.1); SODIUM 142 MMOL/L (136-145); TRIGLYCERIDES 208 MG/DL (30-150)
[2018-04-05] MEDS: Aspirin Baby 81mg ORAL SCH (08:32)
[2018-04-05] MEDS ORDERED: Benazepril 10mg tab ORAL SCH (09:00)
[2018-04-05 12:00] VITALS: BP 117/77
--- NOTE | 2018-04-05 12:48 | Diagnostic Imaging Report ---
Indication: Right-sided facial, arm, and tongue tingling. Inability to walk, unsteady on feet Technique: sagittal T1 fast spin echo, axial T1 and T2 FLAIR PROPELLER, axial T2 FS PROPELLER, T2* GRE, axial diffusion weighted images, post contrast axial and coronal T1 FLAIR PROPELLER images. ADC and exponential ADC maps generated Comparison: 04/04/[address] Findings: . No abnormal areas of restricted diffusion to suggest acute infarction. No acute hemorrhage or edema. No mass effect nor midline shift. No abnormal contrast enhancement. Normal size ventricles and extra axial CSF spaces. Periventricular and deep white matter punctate T2 hyperintensities are noted. Low-attenuation focus in the left internal capsule seen on recent CT scan is demonstrated to be an old lacunar infarct, appearing considerably smaller on the MRI than on the prior CT. Visualized orbits and sinuses are unremarkable. . Impression: Negative for acute intracranial bleed, mass effect, infarct, or contrast enhancing lesion Small old lacunar infarct in the anterior limb of left internal capsule, corresponding to abnormality described on recent head CT Periventricular T2 hyperintensities, nonspecific, probably on the basis of chronic microvascular ischemic changes but could also indicate demyelinating disease
--- NOTE | 2018-04-05 15:10 | Cardiology Report ---
APPROVED REPORT EKG Measurement Heart [id number] PA [id number] Normal sinus rhythm Prolonged QT Abnormal ECG
[2018-04-05 16:00] VITALS: BP 113/80
--- NOTE | 2018-04-05 22:45 | Progress Note ---
CARDIOLOGY AND INTERNAL MEDICINE PROGRESS NOTE DATE: 04/05/2018 SUBJECTIVE: The patient has no new complaints. No headache. No nausea or vomiting. She is able to ambulate without difficulty. No focal weakness. OBJECTIVE: VITAL SIGNS: Blood pressure 117/77, pulse 77, respiratory rate 20, and afebrile. Monitored rhythm, sinus. LUNGS: Clear. CARDIAC: Regular. Normal S1, S2. ABDOMEN: Soft. EXTREMITIES: No edema. DIAGNOSTIC DATA: Echocardiogram with no abnormality noted. MRI of the brain reveals old left internal capsule lacune, some periventricular hyperintensities likely due to microvascular disease. IMPRESSION: 1. Cerebrovascular disease. 2. Hypertensive heart disease. 3. Type 2 diabetes mellitus. 4. History of cocaine abuse. RECOMMENDATION: 1. Continued anti-platelet therapy. 2. Maintain statin therapy that was added. 3. Continue current antihypertensive and diabetic regimens with resumption of metformin in 48 hours. 4. Adverse risks of cocaine made clear to the patient and she agrees to abstain. 5. Outpatient followup arranged with discharge plan today. Twan Layne M.D. DR: SHANNON JOB#: [id number] CC:
--- NOTE | 2018-04-06 09:09 | Cardiology Report ---
APPROVED REPORT EXAM: Two-dimensional and M-mode echocardiogram with Doppler and color Doppler. INDICATION CVA/TIA M-Mode DIMENSIONS IVSd0.7 (0.7-1.1cm)Left Atrium (MM)3.6 (1.6-4.0cm) LVDd4.5 (3.5-5.6cm)Aortic Root4.2 (2.0-3.7cm) PWd1.0 (0.7-1.1cm)Aortic Cusp Exc.1.8 (1.5-2.0cm) LVDs2.9 (2.5-4.0cm) PWs1.2 cm Normal left ventricular chamber size, systolic function and wall motion. Left ventricular ejection fraction estimated to be 60 %. Borderline mild left ventricular hypertrophy by 2D. Anterior Echo-free space, may be due to pericardial fat or effusion. All other cardiac chamber sizes are within normal limits. Focal aortic valve sclerosis with adequate cusp excursion. Thickened mitral valve leaflets with normal excursion. Mitral annulus and aortic root calcification. Pulmonic valve not well visualized. Normal tricuspid valve structure. IVC measured at 1.9 cm with slight physiologic collapse. A color flow and spectral Doppler study was performed and revealed: Trace aortic regurgitation. Trace to mild mitral regurgitation. Mitral diastolic velocities suggest normal diastolic function. Mild tricuspid regurgitation. Tricuspid systolic velocities suggests peak right ventricular systolic pressure of 36 mmHg, consistent with borderline mild pulmonary hypertension.
--- NOTE | 2018-04-06 12:26 | Discharge Summary ---
Discharge Summary Discharge Summary _ DATE OF ADMISSION: 04/04/2018 DATE OF DISCHARGE: 04/05/2018 DISCHARGED BY: Dr. Twan Layne VOLUNTEER RECRUITER: Dr. Shahab Pollock BRIEF HOSPITAL COURSE: Patient is a 52-year-old -[place] female, with several risk factors for accelerated atherosclerosis, presented to the emergency room after going to sleep and had a very bad headache and waking up with right-sided tingling of the right face, arm and tongue. She was also noted to be unsteady on her feet and was unable to walk. She presented to the emergency room, where upon arrival she felt improved although symptoms did not completely resolve. She noted to have some numbness, speech difficulty, and problems with language and vision. She has medical history significant for hypertension, type 2 diabetes mellitus and hyperlipidemia. On evaluation at ED, vital signs were stable. Blood work showed Accu-Chek of 43. He was given D50. Blood work did not show any leukocytosis, hemoglobin and hematocrit were stable. Potassium level 2.9, BUN 22, creatinine 1.2. Serum glucose is 41. EKG showed normal sinus rhythm with no acute ischemic changes. CT of the brain showed a subacute infarct in the basal ganglia. Blood glucose improved after D50 administration. She was given aspirin. Patient is not a candidate for TPA as she had no existing neurological symptoms and is out of the window for previous CVA. She was then admitted for evaluation of left basal ganglia subacute cerebrovascular accident and hypokalemia. She was continued on aspirin. Lipid panel showed triglycerides 497, LDL 79. She was given pravastatin. Urine toxicology was positive for cocaine. She was strongly counseled to avoid any cocaine or cannabis use as well as alcohol and tobacco. Blood glucose was monitored. Hemoglobin A1c was 6.4. She was placed on insulin sliding scale. She was given benazepril. Echocardiogram done showed ejection fraction of 60%. She underwent neuro evaluation. According to patient, approximately a month ago , she had an episode of right-sided tingling and unsteadiness on her feet that lasted for approximately 30 minutes. Symptoms completely resolved until tonight when she had a bad headache and woke up in the morning with right-sided tingling of the upper extremity, face and tongue. On neuro examination, patient had mild dysarthria, right hemiparesis involving the face, upper and lower extremities, brisker reflexes on the right compared to the left and mildly right paretic gait. Brain MRI was negative for acute intracranial bleed, mass-effect, infarct or contrast enhancing lesions. There was a small old lacunar infarct in the anterior limb of the left internal capsule. Carotid duplex exam was done. RPR was negative. She was given physical therapy and occupational therapy. She was continued on antiplatelet therapy. Advised to continue statin. Adverse risks of cocaine was made clear to the patient and she agreed to abstain. She was eventually discharged home. FINAL DIAGNOSES: Cerebrovascular disease Hypertensive heart disease Type 2 diabetes mellitus Cocaine abuse DISPOSITION: Patient was discharged home. DISCHARGE MEDICATIONS: Refer to Discharge Medication List. DISCHARGE INSTRUCTIONS: Follow-up in a week. I have been assigned to complete a discharge summary on this account, I was not involved with the patient's management. Virginia Garcia NP Apr 06, 2018 12:25
== END 2018-04-05 19:30 | disposition home or self-care (01) | DRG 45 ==
LOC: EMR 11:05 → EDBEDREQSVC 11:43 → EDBEDREQTM 11:43 → EDBEDREQ 11:43 → 4E 11:52 → EDBEDREQ 12:26 → EDBEDREQSVC 12:35 → EDBEDREQ 14:17 → 2E 14:26
DX: I63.89 Other cerebral infarction (principal); E11.22 Type 2 diabetes mellitus with diabetic chronic kidney disease; I13.10 Hypertensive heart and chronic kidney disease without heart failure, with stage 1 through stage 4 chronic kidney disease, or unspecified chronic kidney disease; E87.6 Hypokalemia; E78.1 Pure hyperglyceridemia; N18.9 Chronic kidney disease, unspecified; F14.10 Cocaine abuse, uncomplicated; Z86.73 Personal history of transient ischemic attack (TIA), and cerebral infarction without residual deficits; F17.200 Nicotine dependence, unspecified, uncomplicated; Z79.84 Long term (current) use of oral hypoglycemic drugs
CPT/HCPCS: 36415; 70450; 70553; 80053; 80061; 80307; 81003; 82306; 82607; 82746; 82962; 83036; 83735; 83880; 84443; 84484; 85025; 85610; 85651; 85730; 86592; 93005; 93306; 93880; 96374; 99285; A9585; J1815; J8499